=== PATIENT | female | born 1940 | race Caucasian/White ===

== ENCOUNTER → 2017-03-31 | Outpatient (REF) | payer MEDICARE, OTHER ==
[2017-03-31 14:39] LABS: PERCENT SATURATION 4.6 % (13.2-37.4)
== END ==
LOC: M LAB REF 13:24
PROVIDERS: ATTEND Internal Medicine Nephrology
DX: N18.3 Chronic kidney disease, stage 3 (moderate) (principal); D63.1 Anemia in chronic kidney disease

== ENCOUNTER → 2017-04-17 | Outpatient (CLI) | payer MEDICARE, OTHER ==
--- NOTE | 2017-04-17 11:40 | REP ---
PA LATERAL CHEST: 04/17/2017 COMPARISON: 02/17/2017, 02/22/2014, 03/22/2008. CLINICAL HISTORY: Severe dyspnea. FINDINGS: Two views of the chest show the lungs well inflated. Flattening of the diaphragms and increased AP diameter on the lateral view with hyperinflation as well as a pectus excavatum chest wall configuration. Increased markings in the lung bases again seen chronically some vascular engorgement noted but no pulmonary edema or pleural effusion. Densities adjacent heart border represent epicardial fat pads as seen on a CT abdomen including the lung bases, 04/09/2016. Some underlying fibrosis, COPD and no pleural effusion, dense consolidation or parenchymal mass visible radiographically. Posterior CP angles are unchanged from multiple prior studies and some minor apical scarring noted. The aorta is mildly tortuous. There is no widening of the mediastinum. Bony thorax shows no acute compression deformity. IMPRESSION: 1. Hyperinflation with changes of COPD and some basilar fibrosis. Minor apical pleural thickening. Some prominence pulmonary arteries suggesting pulmonary artery hypertension, likely on the basis of COPD. 2. No cardiomegaly but some vascular engorgement noted without edema, definite effusion or parenchymal mass. 3. Prominent epicardial fat pads. No dense consolidation. Signed by Mian Jackman MD 04/17/2017 07:33 P
== END ==
LOC: M WUC 10:15
PROVIDERS: ATTEND Physician Assistant
DX: R06.02 Shortness of breath (principal)

== ENCOUNTER 2017-06-22 10:30 | Outpatient (RCR) | payer MEDICARE, OTHER | END 2017-06-23 | LOC: M PR 10:30 | PROVIDERS: ATTEND Nurse Practitioner Family | DX: Z51.89 Encounter for other specified aftercare (principal); J44.9 Chronic obstructive pulmonary disease, unspecified | CPT/HCPCS: G0424 ×7 ==

== ENCOUNTER 2017-06-24 08:51 | Outpatient (RCR) | payer MEDICARE, OTHER | END 2017-07-23 | LOC: M PR 08:51 | PROVIDERS: ATTEND Nurse Practitioner Family | DX: Z51.89 Encounter for other specified aftercare (principal); J44.9 Chronic obstructive pulmonary disease, unspecified ==

== ENCOUNTER → 2018-04-12 | Outpatient (REF) | payer MEDICARE, OTHER | LOC: M LAB REF 16:40 | DX: N39.0 Urinary tract infection, site not specified (principal) | CPT/HCPCS: 87086 ==

== ENCOUNTER → 2018-04-14 | Outpatient (CLI) | payer MEDICARE, OTHER ==
[2018-04-14 12:59] LABS: ALBUMIN 4.3 GM/DL (3.2-5.2); ALBUMIN/GLOBULIN RATIO 1.16 (1.00-1.93); ALKALINE PHOSPHATASE 199 U/L (45-117); ALT/SGPT 27 U/L (12-78); ANION GAP 9 MEQ/L (8-16); AST/SGOT 20 U/L (7-37); BILIRUBIN,TOTAL 0.9 MG/DL (0.2-1.0); BLOOD UREA NITROGEN 25 MG/DL (7-18); CALCIUM LEVEL 8.9 MG/DL (8.8-10.2); CARBON DIOXIDE LEVEL 30 MEQ/L (21-32); CHLORIDE LEVEL 100 MEQ/L (98-107); CREATININE FOR GFR 1.49 MG/DL (0.55-1.30); GLOMERULAR FILTRATION RATE 36.1 (>39); GLUCOSE, FASTING 142 MG/DL (70-100); POTASSIUM SERUM 4.4 MEQ/L (3.5-5.1); SODIUM LEVEL 139 MEQ/L (136-145)
[2018-04-14 15:03] LABS: BASO # 0.1 10^3/uL (0.0-0.2); BASO % 0.5 % (0.0-1.0); EOS # 0.2 10^3/uL (0.0-0.50); EOS % 1.9 % (0.0-3.0); HEMATOCRIT 50.1 % (36.0-47.0); HEMOGLOBIN 15.8 g/dl (12.0-15.5); IMMATURE GRANULOCYTE % 0.6 % (0-3.0); LYMPH # 2.2 10^3/uL (1.5-4.5); LYMPH % 18.9 % (24.0-44.0); MEAN CORPUSCULAR HEMOGLOBIN 25.2 pg (27.0-33.0); MEAN CORPUSCULAR HGB CONC 31.5 g/dl (32.0-36.5); MEAN CORPUSCULAR VOLUME 79.9 fl (80.0-96.0); MONO # 1.1 10^3/uL (0.0-0.8); MONO % 9.7 % (0.0-5.0); NEUTROPHILS # 7.9 10^3/uL (1.8-7.7); NEUTROPHILS % 68.4 % (36.0-66.0); PLATELET COUNT, AUTOMATED 352 10^3/uL (150-450); RED BLOOD COUNT 6.27 10^6/uL (4.00-5.40); RED CELL DISTRIBUTION WIDTH 15.1 % (11.5-14.5); WHITE BLOOD COUNT 11.6 10^3/uL (4.0-10.0)
== END ==
LOC: M WUC 10:39
DX: R06.02 Shortness of breath (principal); R50.9 Fever, unspecified; J84.10 Pulmonary fibrosis, unspecified
CPT/HCPCS: 80053

== ENCOUNTER 2018-04-15 13:57 | Emergency (ER) | payer MEDICARE, OTHER ==
[2018-04-15 15:07] LABS: BASO % 0.4 % (0.0-1.0); EOS # 0.1 10^3/uL (0.0-0.50); HEMATOCRIT 42.8 % (36.0-47.0); HEMOGLOBIN 13.9 g/dl (12.0-15.5); IMMATURE GRANULOCYTE % 0.4 % (0-3.0); LYMPH # 1.5 10^3/uL (1.5-4.5); LYMPH % 14.6 % (24.0-44.0); MEAN CORPUSCULAR HEMOGLOBIN 25.3 pg (27.0-33.0); MEAN CORPUSCULAR HGB CONC 32.5 g/dl (32.0-36.5); MONO # 0.9 10^3/uL (0.0-0.8); MONO % 8.6 % (0.0-5.0); NEUTROPHILS # 7.7 10^3/uL (1.8-7.7); PLATELET COUNT, AUTOMATED 262 10^3/uL (150-450); RED BLOOD COUNT 5.49 10^6/uL (4.00-5.40); RED CELL DISTRIBUTION WIDTH 14.8 % (11.5-14.5); WHITE BLOOD COUNT 10.3 10^3/uL (4.0-10.0)
[2018-04-15 17:10] LABS: ALBUMIN 3.6 GM/DL (3.2-5.2); ALBUMIN/GLOBULIN RATIO 1.24 (1.00-1.93); ALKALINE PHOSPHATASE 156 U/L (45-117); ALT/SGPT 21 U/L (12-78); ANION GAP 11 MEQ/L (8-16); AST/SGOT 17 U/L (7-37); BILIRUBIN,DIRECT < 0.1 MG/DL (0.0-0.2); BILIRUBIN,TOTAL 0.4 MG/DL (0.2-1.0); BLOOD UREA NITROGEN 33 MG/DL (7-18); CALCIUM LEVEL 8.3 MG/DL (8.8-10.2); CARBON DIOXIDE LEVEL 23 MEQ/L (21-32); CHLORIDE LEVEL 103 MEQ/L (98-107); CPK CREATINE PHOSPHOKINASE 65 U/L (26-192); CREATININE FOR GFR 1.46 MG/DL (0.55-1.30); GLUCOSE, FASTING 162 MG/DL (70-100); POTASSIUM SERUM 3.9 MEQ/L (3.5-5.1); SODIUM LEVEL 137 MEQ/L (136-145); TOTAL PROTEIN 6.5 GM/DL (6.4-8.2); TROPONIN I 0.16 NG/ML (< 0.10)
[2018-04-15 17:11] LABS: MB/CK RELATIVE INDEX 4.61 (< OR =4)
[2018-04-15] MEDS: ALPRAZolam 0.5 MG TAB PO (18:59)
[2018-04-15 20:19] LABS: CPK CREATINE PHOSPHOKINASE 63 U/L (26-192); TROPONIN I 0.13 NG/ML (< 0.10)
[2018-04-15 20:20] LABS: CK-MB VALUE MASS 2.6 NG/ML (<3.6); MB/CK RELATIVE INDEX 4.12 (< OR =4)
== END 2018-04-15 21:45 | disposition home or self-care (01) ==
LOC: M ED 13:57
DX: T38.0X5A Adverse effect of glucocorticoids and synthetic analogues, initial encounter (principal); Y92.9 Unspecified place or not applicable; Y93.9 Activity, unspecified; G47.30 Sleep apnea, unspecified; N18.3 Chronic kidney disease, stage 3 (moderate); J44.9 Chronic obstructive pulmonary disease, unspecified; Z79.899 Other long term (current) drug therapy
CPT/HCPCS: 93005

== ENCOUNTER → 2018-05-15 | Outpatient (REF) | payer MEDICARE, OTHER | LOC: M LAB REF 17:08 | DX: M54.9 Dorsalgia, unspecified (principal) | CPT/HCPCS: 87086 ==

== ENCOUNTER → 2018-05-16 | Outpatient (CLI) | payer MEDICARE, OTHER | LOC: M WUC 11:47 | DX: M51.36 Other intervertebral disc degeneration, lumbar region (principal) | CPT/HCPCS: 72100 ==

== ENCOUNTER → 2024-03-29 | Outpatient (REF) | payer MEDICARE, OTHER ==
[~2024-03-29] MED LIST: BREO1INH; DULO1CAP5; FLON1SPR NARES; INCR1INH; LEVA1.2519; LEVA45AE; LEVO1TAB39; PANT40TA29; SITA50TAB; TRAZ-252; XANA0.25 PO
== END ==
LOC: M LAB REF 16:51
PROVIDERS: ATTEND Nurse Practitioner Adult Health
DX: D51.9 Vitamin B12 deficiency anemia, unspecified (principal)

== ENCOUNTER → 2024-03-30 | Outpatient (CLI) | payer MEDICARE, OTHER | LOC: M WUC 13:59 | PROVIDERS: ATTEND Nurse Practitioner Adult Health | DX: J44.9 Chronic obstructive pulmonary disease, unspecified (principal) ==

== ENCOUNTER → 2024-04-09 | Outpatient (REF) | payer MEDICARE, OTHER ==
[2024-04-09 17:34] LABS: RSV AMPLIFICATION NEGATIVE (NEGATIVE)
== END ==
LOC: M LAB REF 16:04
PROVIDERS: ATTEND Nurse Practitioner Adult Health
DX: J06.9 Acute upper respiratory infection, unspecified (principal)